=== PATIENT | male | born 1970 | race Two or more races ===

== ENCOUNTER 2022-12-15 12:13 | Emergency (ER) | payer OTHER ==
[~2022-12-15] VITALS: Ht 142.2 cm; Wt 126.6 kg
[2022-12-15] MEDS ORDERED: GLUMETZA1000 MG PO (12:42)
== END 2022-12-15 18:06 | disposition home or self-care (01) ==
LOC: ER 12:13
DX: R20.2 Paresthesia of skin (principal); E55.0 Rickets, active; Z88.0 Allergy status to penicillin